=== PATIENT | female | born 1965 | race Hispanic/Latino ===

== ENCOUNTER 2017-02-22 12:40 | Day surgery (SDC) | payer OTHER ==
[~2017-02-22] VITALS: Ht 157.5 cm; Wt 88.5 kg
[~2017-02-22 12:40] MED LIST: BACL20TA PO; ESTR1TAB5 PO; ETOD400T PO; GABA600T2 PO; LORA10CA PO; METH2.5T PO; PANT40TA3 PO; RANI150T11 PO; Sodium Chloride LOK Flush 10 mL Syringe IV PRN; TRAM50TA2 PO; fentaNYL-PF 50 mCg/mL 2 mL Inj IVPUSH PRN
[2017-02-22 13:05] VITALS: BP 113/64; PULSE 60; RESP 12; O2SAT 97
[2017-02-22] MEDS: 0.9% Sodium Chloride 1,000 ML IV SCH ×2 (13:25→14:26)
[2017-02-22 14:19] VITALS: BP 96/60; PULSE 72; RESP 16; O2SAT 98
[2017-02-22 14:35] VITALS: BP 112/57; PULSE 69; RESP 14; O2SAT 99
[2017-02-22 14:42] VITALS: BP 106/66; PULSE 66; RESP 16; O2SAT 100
--- NOTE | 2017-02-22 19:59 | ENDO ---
[address] [address] ENDOSCOPY PROCEDURE PATIENT: SHREYA FRY : 1965 MR#: [id number] ADMIT: 02/22/2017 JOB ID: [id number] DATE OF SERVICE: 02/22/2017 PROCEDURE: Esophagogastroduodenoscopy. INDICATION: Early satiety. The patient's ASA classification is 2. Mallampati score is 2. MEDICATIONS: 1. Versed 5 mg. 2. Fentanyl 125 mcg. INSTRUMENT USED: GIFH-190. PROCEDURE DETAILS: After informed consent was obtained, the patient was brought to the GI suite, where she was placed on oxygen via nasal cannula and monitored with continuous pulse oximeter, telemetry, and blood pressure monitoring. A time-out was performed. Then, she was placed in left lateral decubitus position and medications were administered for sedation. A bite block was placed. The standard EGD scope was inserted through the bite block and advanced under direct visualization to the second portion of duodenum without difficulty. FINDINGS: 1. Normal-appearing duodenal bulb, first and second portion. 2. Normal-appearing pylorus. In the antrum and body of stomach, the mucosa had an erythematous appearance suggestive of gastritis. Multiple random biopsies were obtained. 3. Retroflexed views in the gastric body revealed a normal-appearing cardia and fundus. The GE junction was at approximately 37 cm. There was a short tongue of salmon-colored mucosa extending up to 36 cm. The remainder of esophagus was otherwise unremarkable. IMPRESSION: 1. 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 2. Gastritis. RECOMMENDATIONS: 1. Await biopsy results. 2. Proceed to colonoscopy. COMPLICATIONS: None. ESTIMATED BLOOD LOSS: Less than 5 mL
--- NOTE | 2017-02-22 20:01 | ENDO ---
[address] [address] ENDOSCOPY PROCEDURE PATIENT: SHREYA FRY : 1965 MR#: [id number] ADMIT: 02/22/2017 JOB ID: [id number] DATE OF SERVICE: 02/22/2017 PROCEDURE: Colonoscopy. INDICATION: Rectal bleeding. Please see above for ASA classification, Mallampati score, and medications. INSTRUMENT USED: PCFH-190L PREPARATION QUALITY: Fair. PROCEDURE DETAILS: After completion of the EGD exam, the patient was turned and then a digital rectal exam was performed which was unremarkable. The colonoscope was then inserted into the rectum and advanced under direct visualization to the cecum, which was identified by the presence of the ileocecal valve and appendiceal orifice. Once the cecum was reached, the colonoscope was withdrawn back into the rectum as the mucosa and lumen were examined. In the rectum, retroflexion was performed. Following retroflexion, remaining air in the rectum was suctioned, and procedure was completed. FINDINGS: Normal exam from rectum to cecum. IMPRESSION: Normal colonoscopy, I suspect that patient's rectal bleeding is secondary to benign anorectal disease. RECOMMENDATIONS: Stool softeners daily and follow up in GI clinic. COMPLICATIONS: None. ESTIMATED BLOOD LOSS: Less than 5 mL
--- NOTE | 2017-02-27 16:39 | PATH ---
SURGICAL PATHOLOGY Attending Physician:Vickey Haas CASE STATUS: Signed Out PATIENT NAME: SHREYA FRY PID: [id number] : 1965 DATE COLLECTED:02/22/2017 00:00 SPECIMEN: 1: Gastric, Biopsy 2: Esophagus, Biopsy CLINICAL HISTORY: 1. Random Gastric Bx 2. Distal Esophagus Bx FINAL DIAGNOSIS: 1. Random Gastric Biopsy: Portions of gastric body-type mucosa with no diagnostic abnormality. No definite H. pylori organisms identified by H&E stain. Negative for intestinal metaplasia, dysplasia, and malignancy. 2. Distal Esophagus, Biopsy: Portions of squamocolumnar junctional mucosa with no diagnostic abnormality. Negative for intestinal metaplasia. Negative for dysplasia and malignancy. ICD10: K20.9 GROSS DESCRIPTION: The specimens are received in formalin, labeled with the patient's name, and sublabeled as the following: (1) gastric; (2) DE. (1) The specimen consists of multiple fragments of corey-white rubbery glistening semi-translucent tissue (0.7 x 0.4 x 0.1 cm in aggregate). Section code: (1A) tissue. Specimen entirely submitted. (2) The specimen consists of multiple fragments of corey-white rubbery glistening semi-translucent tissue (0.6 x 0.3 x 0.1 cm in aggregate). Section code: (2A) tissue. Specimen entirely submitted. 02/24/17 ICD-9 CODES: CPT CODES: 1: 65617 2: 51315 Electronically Signed Out Omayra Espinal MD [facility] [address], [place] [address] Technical component performed at [facility], [facility] [address], [place], [address]
== END 2017-02-22 23:59 | disposition home or self-care (01) ==
LOC: END 12:40
PROVIDERS: ATTEND Internal Medicine Gastroenterology
DX: K62.5 Hemorrhage of anus and rectum (principal); R10.84 Generalized abdominal pain; K21.9 Gastro-esophageal reflux disease without esophagitis; M54.12 Radiculopathy, cervical region; E78.5 Hyperlipidemia, unspecified; K29.70 Gastritis, unspecified, without bleeding
CPT/HCPCS: 43239; 45378; 88305; 99152; 99153; J7030